=== PATIENT | female | born 1970 | race Caucasian/White ===

== ENCOUNTER 2024-06-11 07:49 | Outpatient (CLI) | payer OTHER | END 2024-06-11 07:50 | disposition home or self-care (01) | LOC: CSHULT 07:49 | PROVIDERS: ATTEND Family Medicine | DX: R10.13 Epigastric pain (principal) | CPT/HCPCS: 76700 ==

== ENCOUNTER 2024-06-23 09:58 | Outpatient (CLI) | payer OTHER | END 2024-06-23 09:59 | disposition home or self-care (01) | LOC: CSHRAD 09:58 | PROVIDERS: ATTEND Family Medicine | DX: R13.10 Dysphagia, unspecified (principal) | CPT/HCPCS: 74220 ==